=== PATIENT | female | born 1935 | race Two or more races ===

== ENCOUNTER 2020-08-09 01:36 | Inpatient (IN) | payer OTHER ==
[~2020-08-09] VITALS: Ht 30.5 cm; Wt 5.0 kg
[2020-08-12] MEDS ORDERED: SYNTHROID75 MCG (08:24)
[2020-08-12] MEDS ORDERED: PANTOPRAZOLE SO40 MG (08:24)
[2020-08-12] MEDS ORDERED: FENOFIBRATE200 MG (08:24)
[2020-08-12] MEDS ORDERED: MONTELUKAST SOD10 MG (08:24)
[2020-08-12] MEDS ORDERED: NORVASC2.5 MG (08:24)
[2020-08-12] MEDS ORDERED: TELMISARTAN40 MG (08:24)
[2020-08-12] MEDS ORDERED: TRIAMTERENE-HC1 EAC3 (08:25)
== END 2020-08-15 18:12 | disposition expired | DRG 871 ==
LOC: ER 01:36 → ICU-2 13:12
PROVIDERS: ADMIT Internal Medicine; ATTEND Internal Medicine
PROC: 4A033R1 Measurement of Arterial Saturation, Peripheral, Percutaneous Approach (ICD-10-PCS; principal; 2020-08-09)
PROC: 02HV33Z Insertion of Infusion Device into Superior Vena Cava, Percutaneous Approach (ICD-10-PCS; 2020-08-09)
PROC: 3E0436Z Introduction of Nutritional Substance into Central Vein, Percutaneous Approach (ICD-10-PCS; 2020-08-11)
PROC: 3E0F7SF Introduction of Other Gas into Respiratory Tract, Via Natural or Artificial Opening (ICD-10-PCS; 2020-08-12)
DX: A41.9 Sepsis, unspecified organism (principal); N17.0 Acute kidney failure with tubular necrosis; R65.21 Severe sepsis with septic shock; R18.8 Other ascites; N17.8 Other acute kidney failure; E87.2 Acidosis; E46 Unspecified protein-calorie malnutrition; K92.1 Melena; K52.89 Other specified noninfective gastroenteritis and colitis; I10 Essential (primary) hypertension; Z20.822 Contact with and (suspected) exposure to COVID-19; E03.8 Other specified hypothyroidism